=== PATIENT | male | born 1940 | race Two or more races ===

== ENCOUNTER 2023-07-18 10:53 | Outpatient (CLI) | payer MEDICARE, OTHER ==
[2023-07-18 13:18] LABS: BASOPHILS % (AUTO) 0.2 % (0.0-2.0); EOSINOPHILS # (AUTO) 0.1 K/uL (0.0-0.7); EOSINOPHILS % (AUTO) 2.4 % (0.0-6.0); HEMATOCRIT 45 % (39-51); HEMOGLOBIN 14.9 g/dL (13.5-17.5); LYMPHOCYTES # (AUTO) 1.4 K/uL (0.8-4.8); LYMPHOCYTES % (AUTO) 23.8 % (20.0-44.0); MEAN CORPUSCULAR HEMOGLOBIN 29 PG (26.0-33.0); MEAN CORPUSCULAR HGB CONC 33 g/dl (31.0-36.0); MEAN CORPUSCULAR VOLUME 89 fL (80-96); MONOCYTES # (AUTO) 0.5 K/uL (0.1-1.30); NEUTROPHILS # (AUTO) 3.8 K/uL (1.8-8.9); NEUTROPHILS % (AUTO) 65.6 % (43.0-81.0); PLATELET COUNT (AUTO) 158 K/uL (150-450); WHITE BLOOD COUNT (AUTO) 5.8 K/uL (4.3-11.0)
[2023-07-18 13:24] LABS: CALCIUM, SERUM 8.9 mg/dL (8.5-10.1); CARBON DIOXIDE 26 mmol/L (21-32); CHLORIDE 108 mmol/L (98-107); CREATININE 1.7 mg/dL (0.6-1.3); GLUCOSE 103 mg/dL (74-106); POTASSIUM 4.4 mmol/L (3.5-5.1); SODIUM SERUM 140 mmol/L (136-145); UREA NITROGEN, BLOOD 29 mg/dL (7-18)
[2023-07-18 13:43] LABS: APPEARANCE,URINE CLEAR (CLEAR); BILIRUBIN,URINE NEGATIVE (NEGATIVE); BLOOD, URINE NEGATIVE Ery/uL (NEGATIVE); COLOR,URINE YELLOW (YELLOW); KETONES,URINE NEGATIVE (NEGATIVE); LEUKOCYTE ESTERASE ,URINE 1+ (NEGATIVE); NITRITE, URINE NEGATIVE (NEGATIVE); PH,URINE 5.5 (5.0-8.0); PROTEIN,URINE NEGATIVE (NEGATIVE); UGLUCOSE NEGATIVE (NEGATIVE); UROBILINOGEN,URINE 0.2 EU/dL (0.2)
[2023-07-18 13:54] LABS: ADD URINE CULTURE YES; BACTERIA,URINE Rare /HPF (None Seen); RBC,URINE NONE SEEN /HPF (0-2); SQUAMOUS EPITHELIAL CELL,UR Few /HPF (None Seen)
[2023-07-18 14:25] LABS: INR 1.11 (0.91-1.10); PARTIAL THROMBOPLASTIN TIME 28.9 SEC (24.3-34.3); PROTHROMBIN TIME 11.7 SECS (9.2-11.1)
== END 2023-07-18 23:59 | disposition home or self-care (01) ==
LOC: LAB 10:53
PROVIDERS: ATTEND Internal Medicine Pulmonary Disease
DX: Z01.818 Encounter for other preprocedural examination (principal); I70.0 Atherosclerosis of aorta
CPT/HCPCS: 36415; 71045-TC; 80048-TC; 81001; 85025-TC; 85730-TC; 87086-TC

== ENCOUNTER 2023-07-29 06:48 | Inpatient (IN) | payer MEDICARE, OTHER ==
[~2023-07-29] VITALS: Ht 167.6 cm; Wt 83.3 kg
[2023-07-29] MEDS ORDERED: SAXA5TAB PO (07:54)
[2023-07-29] MEDS ORDERED: ASPI-1420 PO (07:54)
[2023-07-29] MEDS ORDERED: ROSU40TA PO (07:54)
[2023-07-29] MEDS ORDERED: CLOP75TA15 PO (07:54)
[2023-07-29] MEDS ORDERED: OLME40TA12 PO (07:54)
[2023-07-29 08:00] VITALS: BP 136/85; TEMP 97.5
[2023-07-29 08:35] VITALS: BP 136/85; TEMP 97.5; O2SAT 98
[2023-07-29] MEDS ORDERED: FAMOTIDINE/PF INJ 20 MG/2 ML VIAL IV ONE (08:48)
[2023-07-29] MEDS ORDERED: FENTANYL PF 100MCG/2ML AMPUL ONE (08:48)
[2023-07-29] MEDS ORDERED: ROCURONIUM BROMIDE 50 MG/5 ML ONE (08:48)
[2023-07-29] MEDS ORDERED: dexaMETHasone SOD PHOSPHATE 10 MG/ML VIAL ONE (09:35)
[2023-07-29] MEDS ORDERED: VANCOMYCIN 1 GM VIAL ONE (09:35)
[2023-07-29] MEDS ORDERED: LIDOCAINE 2%-EPI 1:100,000 30 ML VIAL ONE (09:35)
[2023-07-29] MEDS ORDERED: ACETAMINOPHEN 325 MG TABLET PO PRN (11:30)
[2023-07-29] MEDS ORDERED: IV NS 0.9% 1,000 ML IV PRN (11:30)
[2023-07-29] MEDS ORDERED: HYDROMORPHONE 1 MG/1 ML DISP.SYRIN IV PRN (11:30)
[2023-07-29] MEDS ORDERED: ONDANSETRON HCL/PF 4 MG/2 ML VIAL IV PRN (11:30)
[2023-07-29] MEDS ORDERED: ACETAMINOPHEN 325 MG TABLET ONE ×2 (11:39→11:47)
[2023-07-29 16:00] VITALS: BP 133/82; TEMP 97.5
[2023-07-29 20:00] VITALS: BP 146/100; TEMP 98.8; O2SAT 97
[2023-07-29] MEDS: ATORVASTATIN 40 MG TABLET PO SCH ×2 (21:21→22:00)
[2023-07-29] MEDS: VANCOMYCIN 1 GM in IV D5W 250ml IV SCH ×2 (21:24→22:00)
[2023-07-30 08:00] VITALS: BP 103/90; TEMP 97.5; O2SAT 98
[2023-07-30] MEDS ORDERED: LINAGLIPTIN 5 MG TABLET PO SCH (09:00)
[2023-07-30] MEDS ORDERED: LOSARTAN POTASSIUM 50 MG TABLET PO SCH (09:00)
[2023-07-30] MEDS ORDERED: ASPIRIN EC 81 MG TABLET.DR PO SCH (09:00)
[2023-07-30] MEDS ORDERED: CLOPIDOGREL BISULFATE 75 MG TABLET PO SCH (09:00)
[2023-07-30 09:23] VITALS: BP 103/90
[2023-07-30] MEDS: VANCOMYCIN 1 GM in IV D5W 250ml IV SCH (09:24)
== END 2023-07-30 13:29 | disposition home or self-care (01) | DRG 517 ==
LOC: DS 06:48 → MED 06:49
PROVIDERS: ADMIT Internal Medicine; ATTEND Internal Medicine
PROC: 09BQ0ZZ Excision of Right Maxillary Sinus, Open Approach (ICD-10-PCS; principal; 2023-07-29)
PROC: 0NSR04Z Reposition Maxilla with Internal Fixation Device, Open Approach (ICD-10-PCS; 2023-07-29)
PROC: 0NUR07Z Supplement Maxilla with Autologous Tissue Substitute, Open Approach (ICD-10-PCS; 2023-07-29)
PROC: 0NBR0ZX Excision of Maxilla, Open Approach, Diagnostic (ICD-10-PCS; 2023-07-29)
DX: M84.48XK Pathological fracture, other site, subsequent encounter for fracture with nonunion (principal); M27.2 Inflammatory conditions of jaws; J32.0 Chronic maxillary sinusitis; E11.9 Type 2 diabetes mellitus without complications; I25.10 Atherosclerotic heart disease of native coronary artery without angina pectoris; E78.5 Hyperlipidemia, unspecified; I10 Essential (primary) hypertension; Z95.5 Presence of coronary angioplasty implant and graft; N40.0 Benign prostatic hyperplasia without lower urinary tract symptoms; M27.49 Other cysts of jaw; D16.5 Benign neoplasm of lower jaw bone; E11.69 Type 2 diabetes mellitus with other specified complication
CPT/HCPCS: 82962-TC; A4223; C1713; G0378; J1100; J2405; J2704; J3010; J3370; J3490; J7030; J7040; J7060

== ENCOUNTER 2024-01-20 07:49 | Inpatient (IN) | payer MEDICARE, OTHER ==
[~2024-01-20] VITALS: Ht 165.1 cm; Wt 81.6 kg
[~2024-01-20 07:49] MED LIST: ASPI-1420 PO; CLOP75TA15 PO; OLME40TA12 PO; ROSU40TA PO; SAXA5TAB PO
[2024-01-20] MEDS ORDERED: LIDOCAINE 2%-EPI 1:100,000 30 ML VIAL ONE (09:29)
[2024-01-20] MEDS ORDERED: VANCOMYCIN 1 GM VIAL ONE (09:29)
[2024-01-20] MEDS ORDERED: dexaMETHasone SOD PHOSPHATE 1 ML ONE (09:29)
[2024-01-20] MEDS ORDERED: OXYMETAZOLINE HCL NASAL SPRAY 30 ML BOTTLE NS ONE (10:36)
[2024-01-20] MEDS ORDERED: FENTANYL PF 100MCG/2ML AMPUL ONE (10:47)
[2024-01-20 13:20] VITALS: BP 130/72; O2SAT 97
[2024-01-20] MEDS ORDERED: ONDANSETRON HCL/PF 4 MG/2 ML VIAL IV PRN (14:00)
[2024-01-20] MEDS ORDERED: HYDROMORPHONE 1 MG/1 ML DISP.SYRIN IV PRN (14:00)
[2024-01-20 14:37] VITALS: BP 131/73; TEMP 96.6; O2SAT 95
[2024-01-20] MEDS: IV NS 0.9% 1,000 ML IV PRN (14:56)
[2024-01-20 20:00] VITALS: BP 144/83; TEMP 97.7; O2SAT 96
[2024-01-20] MEDS: VANCOMYCIN 1 GM in IV D5W 250ml IV SCH (23:46)
[2024-01-21] MEDS: MAG HYDROX/AL HYDROX/SIMETH 30 ML UDC PO PRN (01:07)
[2024-01-21 04:21] VITALS: O2SAT 98
[2024-01-21 08:00] VITALS: BP 129/78; TEMP 97.9; O2SAT 95
[2024-01-21] MEDS: ACETAMINOPHEN 325 MG TABLET PO PRN (08:05)
== END 2024-01-21 11:05 | disposition home or self-care (01) | DRG 908 ==
LOC: DS 07:49 → MED 13:12
PROC: 09BR0ZZ Excision of Left Maxillary Sinus, Open Approach (ICD-10-PCS; principal; 2024-01-20)
PROC: 0NPW04Z Removal of Internal Fixation Device from Facial Bone, Open Approach (ICD-10-PCS; 2024-01-20)
PROC: 0NBR0ZZ Excision of Maxilla, Open Approach (ICD-10-PCS; 2024-01-20)
PROC: 0NUR07Z Supplement Maxilla with Autologous Tissue Substitute, Open Approach (ICD-10-PCS; 2024-01-20)
PROC: 0NPW0JZ Removal of Synthetic Substitute from Facial Bone, Open Approach (ICD-10-PCS; 2024-01-20)
PROC: 0WB30ZX Excision of Oral Cavity and Throat, Open Approach, Diagnostic (ICD-10-PCS; 2024-01-20)
DX: T86.831 Bone graft failure (principal); S02.40CK Maxillary fracture, right side, subsequent encounter for fracture with nonunion; T84.69XA Infection and inflammatory reaction due to internal fixation device of other site, initial encounter; S02.40DK Maxillary fracture, left side, subsequent encounter for fracture with nonunion; Y83.8 Other surgical procedures as the cause of abnormal reaction of the patient, or of later complication, without mention of misadventure at the time of the procedure; E78.5 Hyperlipidemia, unspecified; E11.9 Type 2 diabetes mellitus without complications; I10 Essential (primary) hypertension; I25.10 Atherosclerotic heart disease of native coronary artery without angina pectoris; K21.9 Gastro-esophageal reflux disease without esophagitis; M19.90 Unspecified osteoarthritis, unspecified site; Z79.84 Long term (current) use of oral hypoglycemic drugs; Z95.5 Presence of coronary angioplasty implant and graft; X58.XXXD Exposure to other specified factors, subsequent encounter; Y83.2 Surgical operation with anastomosis, bypass or graft as the cause of abnormal reaction of the patient, or of later complication, without mention of misadventure at the time of the procedure; Y92.009 Unspecified place in unspecified non-institutional (private) residence as the place of occurrence of the external cause
CPT/HCPCS: 36415; 71045-TC; 82945-TC; 82962-TC; 88305-TC; 88311-TC; 94799-TC; A4223; C1713; G0378; J0330; J0690; J1100; J2405; J2704; J2765; J3010; J3370; J3490; J7030; J7060

== ENCOUNTER 2025-05-02 05:36 | Inpatient (IN) | payer MEDICARE, OTHER ==
[~2025-05-02] VITALS: Ht 165.1 cm; Wt 80.5 kg
[~2025-05-02 05:36] MED LIST changes: -CLOP75TA15 PO
[2025-05-02] MEDS ORDERED: ANESTHESIA TRAY IN PYXIS 1 EA TRAY MC ONE (06:59)
[2025-05-02] MEDS ORDERED: dexaMETHasone SOD PHOSPHATE 2 ML ONE (06:59)
[2025-05-02] MEDS ORDERED: VANCOMYCIN 1 GM VIAL ONE (07:00)
[2025-05-02] MEDS ORDERED: LIDOCAINE 1%-EPI 1:100,000 20 ML VIAL ONE (07:00)
[2025-05-02] MEDS ORDERED: OXYMETAZOLINE HCL NASAL SPRAY 30 ML BOTTLE NS ONE (07:01)
[2025-05-02 07:04] VITALS: BP 130/71; TEMP 97.5; O2SAT 96
[2025-05-02] MEDS ORDERED: ROCURONIUM BROMIDE 50 MG/5 ML ONE (07:04)
[2025-05-02] MEDS ORDERED: FENTANYL PF 250MCG/5ML AMPUL ONE (07:04)
[2025-05-02] MEDS ORDERED: LABETALOL 20 MG/4 ML VIAL ONE (08:28)
[2025-05-02] MEDS ORDERED: ONDANSETRON HCL/PF 4 MG/2 ML VIAL IV PRN (10:30)
[2025-05-02] MEDS ORDERED: HYDROMORPHONE 1 MG/1 ML DISP.SYRIN IV PRN (10:30)
[2025-05-02 11:00] VITALS: BP 150/87; TEMP 97.5; O2SAT 97
[2025-05-02] MEDS: IV NS 0.9% 1,000 ML IV PRN (11:32)
[2025-05-02 16:00] VITALS: BP 149/78; TEMP 98.4; O2SAT 97
[2025-05-02] MEDS: VANCOMYCIN 1 GM in IV D5W 250ml IV SCH (19:59)
[2025-05-02 20:00] VITALS: BP 136/75; TEMP 97.3; O2SAT 95
[2025-05-03] MEDS: ACETAMINOPHEN 325 MG TABLET PO PRN (01:43)
[2025-05-03] MEDS: CALCIUM CARBONATE 500 MG TAB.CHEW PO PRN (01:55)
[2025-05-03 08:00] VITALS: BP 115/68; TEMP 97.9; O2SAT 97
[2025-05-03] MEDS ORDERED: CLOP75TA15 PO (09:23)
[2025-05-03] MEDS ORDERED: ATEN25TA PO (09:23)
[2025-05-03] MEDS ORDERED: OMEP1CAP24 MT (09:23)
== END 2025-05-03 15:34 | disposition still patient (30) | DRG 908 ==
LOC: DS 05:36 → MED 05:38
PROVIDERS: ADMIT Dentist Oral and Maxillofacial Surgery; ATTEND Dentist Oral and Maxillofacial Surgery
PROC: 0NST04Z Reposition Right Mandible with Internal Fixation Device, Open Approach (ICD-10-PCS; 2025-05-02)
PROC: 0NUV07Z Supplement Left Mandible with Autologous Tissue Substitute, Open Approach (ICD-10-PCS; 2025-05-02)
PROC: 0NUT07Z Supplement Right Mandible with Autologous Tissue Substitute, Open Approach (ICD-10-PCS; 2025-05-02)
PROC: 0N5V0ZZ Destruction of Left Mandible, Open Approach (ICD-10-PCS; 2025-05-02)
PROC: 0N5T0ZZ Destruction of Right Mandible, Open Approach (ICD-10-PCS; 2025-05-02)
PROC: 0NPW07Z Removal of Autologous Tissue Substitute from Facial Bone, Open Approach (ICD-10-PCS; 2025-05-02)
PROC: 0NSV04Z Reposition Left Mandible with Internal Fixation Device, Open Approach (ICD-10-PCS; principal; 2025-05-02 07:30)
DX: T86.831 Bone graft failure (principal); M87.9 Osteonecrosis, unspecified; S02.609K Fracture of mandible, unspecified, subsequent encounter for fracture with nonunion; M27.2 Inflammatory conditions of jaws; D16.4 Benign neoplasm of bones of skull and face; Y92.009 Unspecified place in unspecified non-institutional (private) residence as the place of occurrence of the external cause; Y83.2 Surgical operation with anastomosis, bypass or graft as the cause of abnormal reaction of the patient, or of later complication, without mention of misadventure at the time of the procedure; I25.10 Atherosclerotic heart disease of native coronary artery without angina pectoris; E11.9 Type 2 diabetes mellitus without complications; E78.5 Hyperlipidemia, unspecified; I10 Essential (primary) hypertension; Z79.84 Long term (current) use of oral hypoglycemic drugs
CPT/HCPCS: 82962-TC; 87081-TC; A4223; C1713; G0378; J0360; J0461; J0690; J1100; J2704; J3010; J3370; J3490; J7030; J7060